=== PATIENT | male | born 1985 | race American Indian/Alaskan Native ===

== ENCOUNTER 2016-12-28 17:40 | Emergency (ER) | payer MEDICAID, OTHER ==
[2016-12-28] MEDS ORDERED: Sodium Chloride 0.9% 1,000 ML IV ONE ×3 (18:47→21:03)
[2016-12-28] MEDS ORDERED: Sodium Chloride 0.9% 1,000 ML ONE ×3 (18:54→21:13)
[2016-12-28 18:58] LABS: BASO % 0.4 % (0.0-2.0); EOS # 0.2 K/uL (0.0-0.7); EOS % 1.6 % (0.0-4.0); HEMATOCRIT 38.7 % (35.0-51.0); LYMPH # 1.2 K/uL (1.0-4.3); LYMPH % 11.9 % (20.0-40.0); MEAN CELL VOLUME 89.7 fL (80.0-94.0); MEAN CORPUSCULAR HEMOGLOBIN 29.3 pg (27.0-31.0); MEAN CORPUSCULAR HGB CONC 32.7 g/dL (33.0-37.0); MEAN PLATELET VOLUME 7.7 fL (7.2-11.7); MONO # 0.7 K/uL (0.0-0.8); MONO % 6.7 % (0.0-10.0); NRBC % 0.1 % (0.0-2.0); RED CELL DISTRIBUTION WIDTH 12.5 % (11.5-14.5); WHITE BLOOD COUNT 10.2 K/uL (4.8-10.8)
[2016-12-28 19:07] LABS: CHLORIDE 80 mmol/L (98-107); SODIUM 123 mmol/L (132-148)
[2016-12-28 19:08] LABS: POTASSIUM 4.4 mmol/L (3.6-5.2)
[2016-12-28 19:10] LABS: ALB/GLOB RATIO 1.4 (1.0-2.1); ALKALINE PHOSPHATASE 121 U/L (38-126); AST/SGOT 18 U/L (17-59); BLOOD UREA NITROGEN 19 mg/dL (9-20); CARBON DIOXIDE 26 mmol/L (22-30); GFR AFRICAN-AMERICAN > 60; TOTAL PROTEIN 7.4 g/dL (6.3-8.3)
[2016-12-28 19:11] LABS: ALT/SGPT 32 U/L (21-72)
[2016-12-28 19:22] LABS: RBC URINE 1 /hpf (0-3); URINE BILIRUBIN NEGATIVE (NEGATIVE); URINE COLOR Colorless (YELLOW); URINE GLUCOSE (UA) 3+ mg/dL (Normal); URINE KETONE NEGATIVE (NEGATIVE); URINE LEUKOCYTE ESTERASE NEG Leu/uL (Negative); URINE PROTEIN NEGATIVE (NEGATIVE); URINE UROBILINOGEN NORMAL mg/dL (0.2-1.0); WBC URINE 3 /hpf (0-5)
[2016-12-28 19:31] LABS: GLUCOSE,RANDOM 930 mg/dL (75-110)
[2016-12-28 19:35] LABS: URINE BLOOD TRACE (NEGATIVE)
[2016-12-28] MEDS ORDERED: (Novolin R) Insulin Human Regular 100 units/ml vial IV ONE ×2 (19:40→21:03)
[2016-12-28] MEDS ORDERED: (Novolin R) Insulin Human Regular 100 units/ml vial ONE ×2 (19:52→21:13)
[2016-12-28 20:55] VITALS: RESP 18
--- NOTE | 2016-12-28 21:05 | C.PDOC ---
Time Seen by Provider: 12/28/16 17:53 Chief Complaint (Nursing): High Blood Sugar Past Medical History Vital Signs: Last Vital Signs Temp 97.7 F 12/28/16 20:55 Pulse 79 12/28/16 20:55 Resp 18 12/28/16 20:55 BP 122/77 12/28/16 20:55 Pulse Ox 99 12/28/16 21:07 - Medical History PMH: Diabetes (iddm) - Social History Hx Tobacco Use: No Hx Alcohol Use: No Hx Substance Use: No - Immunization History Hx Tetanus Toxoid Vaccination: No Hx Influenza Vaccination: No Hx Pneumococcal Vaccination: No ED Course And Treatment - Laboratory Results Result Diagrams: 12/28/16 18:55 12/28/16 18:55 O2 Sat by Pulse Oximetry: 99 Disposition - Disposition Forms: [employer] ([place])
--- NOTE | 2016-12-28 21:11 | C.PDOC ---
History Of Present Illness 31 year old male with a Hx of DM1 presents to the ED c/o an abscess in the inner right thigh for the last 2 days, patient has Hx of a prior abscess in his left groin about a week ago that was drained. Patient's blood sugar is usually high and uncontrolled. He denies any fever, nausea, vomit, abdominal pain. Time Seen by Provider: 12/28/16 17:53 Chief Complaint (Nursing): High Blood Sugar History Per: Patient History/Exam Limitations: no limitations Onset/Duration Of Symptoms: Days Current Symptoms Are (Timing): Still Present Location Of Injury: Right: Thigh (inner) Quality Of Symptoms: Swollen. denies: Draining Recent travel outside of the [place]: No Additional History Per: Patient Past Medical History Reviewed: Historical Data, Nursing Documentation, Vital Signs Vital Signs: Last Vital Signs Temp 97.7 F 12/28/16 20:55 Pulse 79 12/28/16 20:55 Resp 18 12/28/16 20:55 BP 122/77 12/28/16 20:55 Pulse Ox 99 12/28/16 22:20 - Medical History PMH: Diabetes (iddm) Surgical History: No Surg Hx Family History: States: Unknown Family Hx - Social History Hx Tobacco Use: No Hx Alcohol Use: No Hx Substance Use: No - Immunization History Hx Tetanus Toxoid Vaccination: No Hx Influenza Vaccination: No Hx Pneumococcal Vaccination: No Review Of Systems Constitutional: Negative for: Fever, Chills Cardiovascular: Negative for: Chest Pain, Palpitations Respiratory: Negative for: Cough, Shortness of Breath Gastrointestinal: Negative for: Nausea, Vomiting, Abdominal Pain Skin: Positive for: Other (Abscess to right inner thigh) Neurological: Negative for: Weakness, Numbness Physical Exam - Physical Exam Appears: Non-toxic, No Acute Distress Skin: Normal Color, Warm, Dry Head: Atraumatic, Normacephalic Oral Mucosa: Moist Neck: Normal ROM, Supple Chest: Symmetrical Cardiovascular: Rhythm Regular, No Murmur Respiratory: Normal Breath Sounds, No Accessory Muscle Use, No Rales, No Rhonchi , No Wheezing Gastrointestinal/Abdominal: Soft, No Tenderness Extremity: Normal ROM, Other (Right inner thigh 3 cm area tender to palpation, no fluctuance ) Neurological/Psych: Oriented x3 Gait: Steady ED Course And Treatment - Laboratory Results Result Diagrams: 12/28/16 18:55 12/28/16 18:55 O2 Sat by Pulse Oximetry: 99 (On RA) Pulse Ox Interpretation: Normal Progress Note: Plan: -Blood work, UA ordered. -Cleocin 300 mg PO, Insulin 5 UNit IV once, Insulin 2 unit IV once, IVfluids, Toradol 30 mg IVP given. Patient has a 3 cm area in his inner right thigh that is tender to palpation with no fluctuance that does not need to be drained at this time. Disposition Counseled Patient/Family Regarding: Studies Performed, Diagnosis, Need For Followup, Rx Given - Disposition Referrals: at [facility] [Outside] Disposition: HOME/ ROUTINE Disposition Time: 22:20 Condition: STABLE Additional Instructions: FOLLOW UP WITH PMD/CLINIC IN 1-2 DAYS USE MEDICATION UNTIL FINISHED RETURN TO ER IF SYMPTOMS WORSEN Prescriptions: Clindamycin [Cleocin] 300 mg PO TID #21 cap Insulin Glargine, Recombina [Lantus] 30 unit SC HS #1 bottle [place], Disposable [[place]] 1 each MC DAILY #30 dis.needle Instructions: Abscess (ED), Diabetic Hyperglycemia (ED) Forms: [employer] (Czech) Print Language: UKRAINIAN - POA Present On Arrival: None - Clinical Impression Clinical Impression: Hyperglycemia due to type 1 diabetes mellitus, Abscess of right thigh - Scribe Statement The provider has reviewed the documentation as recorded by the Scribe Angelito Ellis All medical record entries made by the Scribe were at my direction and personally dictated by me. I have reviewed the chart and agree that the record accurately reflects my personal performance of the history, physical exam, medical decision making, and the department course for this patient. I have also personally directed, reviewed, and agree with the discharge instructions and disposition.
[2016-12-28 22:38] VITALS: BP 131/85; PULSE 80; TEMP 98; O2SAT 100
== END 2016-12-28 22:39 | disposition home or self-care (01) ==
LOC: C.ER 17:40
DX: E10.65 Type 1 diabetes mellitus with hyperglycemia (principal); Z79.4 Long term (current) use of insulin; L02.415 Cutaneous abscess of right lower limb
CPT/HCPCS: 80053; 81001; 82009; 82948; 85025; 96361; 96374; 99285; J1885; J7040